=== PATIENT | female | born 1990 | race Caucasian/White ===

== ENCOUNTER 2020-11-06 20:42 | Emergency (ER) | payer OTHER ==
[2020-11-06] MEDS ORDERED: KEFLEX CAP 250250 MG PO (21:21)
[2020-11-06] MEDS ORDERED: IBUPROFEN800 MG PO (21:21)
== END 2020-11-06 21:48 | disposition home or self-care (01) ==
LOC: ER1 20:42
DX: K08.89 Other specified disorders of teeth and supporting structures (principal); F17.290 Nicotine dependence, other tobacco product, uncomplicated; Z88.0 Allergy status to penicillin
CPT/HCPCS: 99282

== ENCOUNTER 2022-03-22 19:31 | Emergency (ER) | payer OTHER ==
[2022-03-22 21:48] LABS: BUN/CREATININE RATIO 17 (0-10)
== END 2022-03-23 00:05 | disposition home or self-care (01) ==
LOC: ER1 19:31
PROVIDERS: Student in an Organized Health Care Education/Training Program
DX: R60.0 Localized edema (principal); F17.290 Nicotine dependence, other tobacco product, uncomplicated; Z88.0 Allergy status to penicillin
CPT/HCPCS: 80053; 82550; 82553; 83880; 84484; 84703; 99284; Q9967

== ENCOUNTER → 2022-03-22 | Outpatient (CLI) | payer OTHER ==
[~2022-03-22] MED LIST: IBUPROFEN800 MG PO; KEFLEX CAP 250250 MG PO
[2022-03-22 16:12] LABS: HEMOGLOBIN 10.3 gm/dl (12.3-15.3); RED BLOOD COUNT 3.63 M/UL (4.00-5.10); WHITE BLOOD COUNT 4.6 K/UL (4.5-11.0)
[2022-03-22 16:24] LABS: BUN/CREATININE RATIO 18 (0-10)
== END ==
LOC: RAD 15:07
PROVIDERS: Emergency Medicine
DX: R22.33 Localized swelling, mass and lump, upper limb, bilateral (principal); R22.43 Localized swelling, mass and lump, lower limb, bilateral
CPT/HCPCS: 36415; 71046; 80053; 82550; 83880; 84443; 84484; 85025; 85379

== ENCOUNTER → 2022-03-23 | Outpatient (CLI) | payer OTHER | LOC: US 11:16 | DX: M79.89 Other specified soft tissue disorders (principal); R79.89 Other specified abnormal findings of blood chemistry | CPT/HCPCS: 93970 ==